=== PATIENT | female | born 1960 | race Caucasian/White ===

== ENCOUNTER 2017-03-07 06:24 | Day surgery (SDC) | payer OTHER ==
[~2017-03-07 06:24] MED LIST: Lactated Ringers 1,000 ML IV SCH
[2017-03-07] MEDS ORDERED: Propofol 200 MG/20 ML SDV ONE ×2 (07:44→07:57)
[2017-03-07] MEDS ORDERED: fentaNYL 100 MCG/2 ML SDV ONE (07:44)
[2017-03-07] MEDS ORDERED: Ondansetron 4 MG/2 ML SDV ONE (07:44)
[2017-03-07 08:26] VITALS: BP 116/68
--- NOTE | 2017-03-07 08:42 | OR ---
PREOPERATIVE DIAGNOSIS: Abdominal pain. Abnormal CAT scan of stomach. POSTOPERATIVE DIAGNOSIS: Minimal antritis, otherwise normal exam. PROCEDURE PROPOSED: Upper gastrointestinal panendoscopy with duodenal and antral biopsies. PROCEDURE DONE: Upper gastrointestinal panendoscopy with duodenal and antral biopsies. INDICATION: This is a 56-year-old female bothered with some lower abdominal pain. She was evaluated with a CT scan which revealed some unusual thickening of the stomach and she does have some mild dyspepsia symptoms and it is felt that she should have her stomach evaluated. She is also going to have a colonoscopy for screening purposes. TECHNIQUE: The patient was brought to the endoscopy suite, placed in the left lateral decubitus position. She was sedated per MOVABLE BULKHEAD INSTALLER with propofol. The flexible video gastroscope was then passed transorally and under visualization as well into the duodenum. The duodenum and duodenal bulb were unremarkable without inflammation or ulceration. A couple of biopsies were taken from the duodenum. The pylorus appeared unremarkable. The antrum did reveal some very minimal inflammation compatible with mild antritis. The body and fundus of the stomach otherwise looked normal. A couple of biopsies were taken from the antrum. The GE junction did not reveal any significant hiatal hernia. There was no signs of any active GERD or stenosis or Schatzki ring and the remainder of the esophagus was normal as the scope was then withdrawn. She tolerated the procedure well. IMPRESSION: Minimal antritis, otherwise normal exam. PLAN: The patient will be treated for a month with omeprazole 20 mg daily. She needs to avoid caffeine, ibuprofen, alcohol, nicotine and follow up with her PCP as needed. SECOND PROCEDURE: PREOPERATIVE DIAGNOSIS: Screening colonoscopy. POSTOPERATIVE DIAGNOSIS: Sigmoid diverticulosis, otherwise normal exam. PROCEDURE PROPOSED: Total flexible colonoscopy. PROCEDURE DONE: Total flexible colonoscopy. INDICATION: A 56-year-old female comes in for recommended screening colonoscopy. Her last examination was about 10 years ago. TECHNIQUE: She was in the left lateral decubitus position. She was sedated per MOVABLE BULKHEAD INSTALLER with propofol. The flexible video colonoscope was then passed transanally and under visualization advanced to the cecum, confirmed with visualization of the ileocecal valve. Upon withdrawal, examination revealed essentially normal ascending, transverse, and descending colon. The sigmoid colon revealed mild-to- moderate diverticulosis and the rectum was normal. There was no evidence of any polyps or colitis or other abnormalities and the scope was then withdrawn. She tolerated the procedure well. IMPRESSION: Sigmoid diverticulosis, otherwise normal exam. PLAN: I feel that she can continue to have screening colonoscopies every 10 years. SCM: 03/07/2017 08:19:03 MODL: 03/07/2017 08:36:09 /[id number]
--- NOTE | 2017-03-31 09:11 | LETTER ---
03/31/2017 Marium Ferro RE: MARIUM FERRO : 1960 Dear Marium: The biopsies taken from your duodenum revealed no abnormalities, which would rule out sprue or celiac disease or other intestinal bowel disease. The biopsies from your stomach revealed to have some mild inflammation, but there was no evidence of the H. pylori bacteria, which can cause ulcers. If you have any further questions, feel free to call. Respectfully,
== END 2017-03-07 09:25 | disposition home or self-care (01) ==
LOC: VM.SDS 06:24
PROVIDERS: ATTEND Surgery
DX: K29.50 Unspecified chronic gastritis without bleeding (principal); Z88.8 Allergy status to other drugs, medicaments and biological substances; F43.23 Adjustment disorder with mixed anxiety and depressed mood; E78.01 Familial hypercholesterolemia; E78.5 Hyperlipidemia, unspecified; J30.2 Other seasonal allergic rhinitis; E78.1 Pure hyperglyceridemia; Z79.899 Other long term (current) drug therapy
CPT/HCPCS: 43239; J2405; J2704; J3010; J7120

== ENCOUNTER 2018-11-22 21:42 | Emergency (ER) | payer OTHER ==
[2018-11-22 21:50] VITALS: BP 129/82; PULSE 97
--- NOTE | 2018-11-22 22:13 | EDM.PDOC ---
ED HPI GENERAL MEDICAL PROBLEM - General Chief Complaint: Abdominal Pain Stated Complaint: ADBOMININAL PAIN Time Seen by Provider: 11/22/18 21:45 Source of Information: Reports: Patient, Family History Limitations: Reports: No Limitations - History of Present Illness INITIAL COMMENTS - FREE TEXT/NARRATIVE: Patient presents to the ER today with complaint of lower pelvic pain that has been intermittent for the last day and a half states it is worse with urination or getting up and walking around. Pain at that time was 10 out of 10 but she remains still its a 1/10 symptoms progressively got worse this afternoon after watching football on home. She denies any dysuria but does have pain upon urination. She has no other complaints at this time She has had a total abdominal hysterectomy in the past cholecystectomy had a colonoscopy approximately 2-3 years ago with mild diverticulosis but has not had any diverticulitis. She has been eating normal and drinking normal today Duration: Day(s): Location: Reports: Abdomen, Pelvis. Denies: Back Quality: Reports: Pressure, Stabbing Improves with: Reports: Rest Worsens with: Reports: Movement Associated Symptoms: Reports: No Other Symptoms Treatments [employer]CHNICIAN: Reports: Other (see below) (She took 3 Advil prior to arrival about 20 minutes does not want anything for pain at this time) Lower Abdomen Pain Score (Numeric/FACES): 10 - Related Data Allergies Allergy/AdvReac Type Severity Reaction Status Date / Time orphenadrine [From Norflex] Allergy Other Verified 11/22/18 21:50 pravastatin [From Pravachol] Allergy Hives Verified 11/22/18 21:50 Home Meds: Home Meds DULoxetine HCl [Cymbalta] 60 mg PO DAILY 02/27/17 [History] Dextran 70/Hypromellose [Artificial Tears] 1 drop EYEBOTH Q4H PRN 02/27/17 [ History] Ipratropium [Atrovent 0.06% Nasal [place]] 2 spray NASBOTH TID 02/27/17 [History] Multivitamin with Minerals [Multiple Vitamin] 1 tab PO DAILY 02/27/17 [History] Sodium Chloride [Saline Nasal [place]] 1 spray PRIYANK BID PRN 02/27/17 [History] Vitamin B Complex [B Complex] 1 tab PO DAILY 02/27/17 [History] Ezetimibe [Zetia] 10 mg PO DAILY 03/07/17 [History] Past Medical History HEENT History: Reports: None Other HEENT History: seasonal allergies, myopia, presbyopia, posterior vitreous detachment-left Cardiovascular History: Reports: High Cholesterol Other Respiratory History: abnormal CT scan-lung Gastrointestinal History: Reports: None Genitourinary History: Reports: UTI, Recurrent Other Genitourinary History: female stress incontinence Other Musculoskeletal History: right arm pain, dense breasts, adhesive capsulitis both shoulders Neurological History: Reports: None Psychiatric History: Reports: Anxiety, Depression, Mood Swings Other Psychiatric History: adjustment disorder with mixed anxiety and depression Endocrine/Metabolic History: Reports: None Other Hematologic History: chemotherapy induced neutropenia Immunologic History: Reports: None Oncologic (Cancer) History: Reports: Breast Dermatologic History: Reports: None - Past Surgical History GI Surgical History: Reports: Cholecystectomy, Colonoscopy, EGD Female Surgical History: Reports: Hysterectomy Other Musculoskeletal Surgeries/Procedures:: back surgery. hip growth excision Oncologic Surgical History: Reports: Lumpectomy Social & Family History - Tobacco Use Smoking Status *Q: Former Smoker Used Tobacco, but Quit: Yes Month/Year Tobacco Last Used: ED ROS GENERAL - Review of Systems Review Of Systems: See Below Constitutional: Denies: Fever, Chills, Malaise, Weakness, Fatigue, Decreased Appetite HEENT: Reports: No Symptoms Respiratory: Reports: No Symptoms Cardiovascular: Reports: No Symptoms Endocrine: Reports: No Symptoms GI/Abdominal: Reports: Abdominal Pain. Denies: Anorexia, Black Stool, Bloody Stool, Constipation, Decreased Appetite, Distension, Flatus, Hematemesis, Nausea , Vomiting : Reports: Urgency. Denies: Dysuria, Flank Pain, Frequency, Incontinence, Urinary Retention Musculoskeletal: Reports: No Symptoms Skin: Reports: No Symptoms Neurological: Reports: No Symptoms Psychiatric: Reports: No Symptoms Hematologic/Lymphatic: Reports: No Symptoms Immunologic: Reports: No Symptoms ED EXAM, GI/ABD - Physical Exam Exam: See Below Exam Limited By: No Limitations General Appearance: Alert, WD/WN, No Apparent Distress Eyes: Bilateral: Normal Appearance Throat/Mouth: Normal Inspection, Normal Lips, Normal Teeth, Normal Gums, Normal Oropharynx, Normal Voice, No Airway Compromise Neck: Non-Tender, Full Range of Motion Respiratory/Chest: No Respiratory Distress, Lungs Clear, Normal Breath Sounds, No Accessory Muscle Use, Chest Non-Tender Cardiovascular: Normal Peripheral Pulses, Regular Rate, Rhythm, No Edema, No Gallop, No JVD GI/Abdominal Exam: Normal Bowel Sounds, Soft, No Organomegaly, No Distention, No Abnormal Bruit, Tender, Other (Patient has mild diffuse tenderness to palpation across the lower pelvic. . She has negative rebound negative Mclain's negative heel slap pelvic rock elicits mild discomfort with heel drop she has no CVA tenderness bilateral). No: Non-Tender, Guarding, Rigid, Rebound Back Exam: Full Range of Motion. No: CVA Tenderness (L), CVA Tenderness (R) Extremities: Normal Inspection, Normal Range of Motion, Non-Tender, No Pedal Edema, Normal Capillary Refill Neurological: Alert, Oriented, CN II-XII Intact, Normal Cognition, Normal Gait, No Motor/Sensory Deficits Psychiatric: Normal Affect, Normal Mood Skin Exam: Warm, Dry, Intact, Normal Color, No Rash Course - Vital Signs Text/Narrative:: UA revealed positive leukocytes secondary to mild tenderness to palpation across lower pelvic region CBC and BMP patient has normal vital signs and afebrile currently does not wish to have any pain medicines CBC within normal limits with no acute white count we'll treat for UTI Cipro 500 one by mouth twice a day 3 days Pyridium 100 mg one by mouth every 12 hours 3 days patient is to follow up with primary care provider in the a.m. or return to the emergency room if anything changes or gets worse Patient is okay with diagnosis treatment going home state she has an appointment Friday with a primary care provider already Last Recorded V/S: Last Vital Signs Temp 36.8 C 11/22/18 21:42 Pulse 97 11/22/18 21:42 Resp 18 11/22/18 21:42 BP 129/82 11/22/18 21:42 Pulse Ox 97 11/22/18 21:42 - Orders/Labs/Meds Orders: Active Orders 24 hr Category Date Time Status BASIC METABOLIC PANEL,BMP [CHEM] Stat Lab 11/22/18 22:07 Ordered Phenazopyridine [Urinary Pain Relief] Med 11/22/18 22:32 Ordered 95 mg PO TID PRN Medication Orders Phenazopyridine HCl (Urinary Pain Relief) 95 mg PO TID PRN PRN Reason: Pain Labs: Laboratory Tests 11/22/18 11/22/18 Range/Units 21:55 22:20 WBC 8.8 (4.0-10.0) x10^3/uL RBC 4.17 (4.00-5.50) x10^6/uL Hgb 12.6 (12.0-16.0) g/dL Hct 37.3 (33.0-47.0) % MCV 89.4 (78.0-93.0) fL MCH 30.2 (26.0-32.0) pg MCHC 33.8 (32.0-36.0) g/dL RDW Coeff of Haily 12.7 (10.0-15.0) % Plt Count 166 (130-400) x10^3/uL Neut % (Auto) 71.8 (50.0-80.0) % Lymph % (Auto) 18.1 L (25.0-50.0) % [place] % (Auto) 8.8 (2.0-11.0) % Eos % (Auto) 0.6 (0.0-4.0) % Baso % (Auto) 0.7 (0.2-1.2) % Urine Color Straw H (YELLOW) POC Urine Appearance Clear (CLEAR) POC Urine pH 6.0 (5.0-8.0) Ur Specific [place] 1.005 (1.005-1.030) POC Urine Protein Negative (NEGATIVE) POC Ur Glucose (UA) Negative (NEGATIVE) POC Urine Ketones Negative (NEGATIVE) POC Ur Occult Blood Negative (NEGATIVE) POC Urine Nitrite Negative (NEGATIVE) POC Urine Bilirubin Negative (NEGATIVE) POC Urine Urobilinogen 0.2 (0.2) POC U Leukocyte Esteras Large H (NEGATIVE) Meds: Medications Generic Name Dose Route Start Last Admin Trade Name Freq PRN Reason Stop Dose Admin Phenazopyridine HCl 95 mg 11/22/18 22:32 Urinary Pain Relief PO TID PRN Pain Discontinued Medications Generic Name Dose Route Start Last Admin Trade Name Freq PRN Reason Stop Dose Admin Ciprofloxacin 1 packet 11/22/18 22:31 Take Home: Ciprofloxacin 500 Mg, 2 Tab Pack PO 11/22/18 22:32 ONETIME ONE Departure - Departure Time of Disposition: 22:50 Disposition: Home, Self-Care 01 Condition: Good Clinical Impression: Pelvic pain in female, UTI (urinary tract infection) - Discharge Information *PRESCRIPTION DRUG MONITORING PROGRAM REVIEWED*: No *COPY OF PRESCRIPTION DRUG MONITORING REPORT IN PATIENT ANDERSON: No Referrals: Trinity Rios DO [Primary Care Provider] - Forms: ED Department Discharge - Problem List & Annotations (1) Pelvic pain in female SNOMED Code(s): 629088395 Code(s): R10.2 - PELVIC AND PERINEAL PAIN Status: Acute Current Visit: Yes (2) UTI (urinary tract infection) SNOMED Code(s): 82384728 Code(s): N39.0 - URINARY TRACT INFECTION, SITE NOT SPECIFIED Status: Acute Current Visit: Yes - My Orders Last 24 Hours: My Active Orders 11/22/18 22:07 BASIC METABOLIC PANEL,BMP [CHEM] Stat 11/22/18 22:32 Phenazopyridine [Urinary Pain Relief] 95 mg PO TID PRN - Assessment/Plan Last 24 Hours: My Active Orders 11/22/18 22:07 BASIC METABOLIC PANEL,BMP [CHEM] Stat 11/22/18 22:32 Phenazopyridine [Urinary Pain Relief] 95 mg PO TID PRN
[2018-11-22] MEDS ORDERED: Take Home: Ciprofloxacin 500 MG Tab, 2 Tab Pack PO ONE (22:31)
[2018-11-22] MEDS ORDERED: Phenazopyridine 95 MG Tab PO PRN (22:32)
[2018-11-22 22:38] LABS: CHLORIDE,CL 105 mmol/L (54-184); SODIUM,NA 140 mmol/L (69-191)
[2018-11-22 22:42] LABS: ANION GAP 15.7 mmol/L (10-20)
== END 2018-11-22 22:50 | disposition home or self-care (01) ==
LOC: VM.ED 21:42
DX: N39.0 Urinary tract infection, site not specified (principal); E78.00 Pure hypercholesterolemia, unspecified; F32.9 Major depressive disorder, single episode, unspecified; F41.9 Anxiety disorder, unspecified; Z87.891 Personal history of nicotine dependence; Z88.8 Allergy status to other drugs, medicaments and biological substances
CPT/HCPCS: 36415; 80048; 81002; 85025; 87086; 99284; A9270

== ENCOUNTER 2019-10-05 11:44 | Emergency (ER) | payer OTHER ==
[2019-10-05 11:58] VITALS: BP 145/73; PULSE 90
--- NOTE | 2019-10-05 12:35 | EDM.PDOC ---
ED HPI GENERAL MEDICAL PROBLEM - General Chief Complaint: Chest Pain Stated Complaint: LEFT ARM PAIN Time Seen by Provider: 10/05/19 11:57 Source of Information: Reports: Patient History Limitations: Reports: No Limitations - History of Present Illness INITIAL COMMENTS - FREE TEXT/NARRATIVE: Pt. presents to ER with complaints of L arm pain. Pt. states that she has been experiencing it for a week. She states that the discomfort starts in the lateral shoulder/deltoid region and radiates into remainder of arm, hand and into all fingers. Pt. denies any trauma to the extremity. Pt. has a history of bilateral frozen shoulder but states that the presentation now is different. Pt. denies any neck pain. No swelling/duskiness to the extremity. Pt. denies any fever or chills. No chest pain, shortness of breath, or palpitations. No nausea or vomiting. Denies any jaw, neck or back pain. Onset: Today Onset Date: 10/05/19 Location: Reports: Upper Extremity, Left Quality: Reports: Burning Severity: Moderate Left Arm Pain Score (Numeric/FACES): 8 - Related Data Allergies Allergy/AdvReac Type Severity Reaction Status Date / Time orphenadrine [From Norflex] Allergy Other Verified 10/05/19 12:01 pravastatin [From Pravachol] Allergy Hives Verified 10/05/19 12:01 Home Meds: Home Meds DULoxetine HCl [Cymbalta] 60 mg PO DAILY 02/27/17 [History] Dextran 70/Hypromellose [Artificial Tears] 1 drop EYEBOTH Q4H PRN 02/27/17 [History] Ipratropium [Atrovent 0.06% Nasal [place]] 2 spray NASBOTH TID 02/27/17 [History] Multivitamin with Minerals [Multiple Vitamin] 1 tab PO DAILY 02/27/17 [History] Sodium Chloride [Saline Nasal [place]] 1 spray PRIYANK BID PRN 02/27/17 [History] Ezetimibe [Zetia] 10 mg PO DAILY 03/07/17 [History] Past Medical History HEENT History: Reports: None Other HEENT History: seasonal allergies, myopia, presbyopia, posterior vitreous detachment-left Cardiovascular History: Reports: High Cholesterol Other Respiratory History: abnormal CT scan-lung Gastrointestinal History: Reports: None Genitourinary History: Reports: UTI, Recurrent Other Genitourinary History: female stress incontinence Other Musculoskeletal History: right arm pain, dense breasts, adhesive capsulitis both shoulders Neurological History: Reports: None Psychiatric History: Reports: Anxiety, Depression, Mood Swings Other Psychiatric History: adjustment disorder with mixed anxiety and depression Endocrine/Metabolic History: Reports: None Other Hematologic History: chemotherapy induced neutropenia Immunologic History: Reports: None Oncologic (Cancer) History: Reports: Breast Dermatologic History: Reports: None - Past Surgical History Head Surgeries/Procedures: Reports: None GI Surgical History: Reports: Cholecystectomy, Colonoscopy, EGD Female Surgical History: Reports: Hysterectomy Other Musculoskeletal Surgeries/Procedures:: back surgery. hip growth excision Oncologic Surgical History: Reports: Lumpectomy Social & Family History - Tobacco Use Smoking Status *Q: Never Smoker - Alcohol Use Days Per Week of Alcohol Use: 1 Number of Drinks Per Day: 1 Total Drinks Per Week: 1 - Recreational Drug Use Recreational Drug Use: No ED ROS GENERAL - Review of Systems Review Of Systems: See Below Constitutional: Reports: No Symptoms HEENT: Reports: No Symptoms Respiratory: Reports: No Symptoms Cardiovascular: Reports: No Symptoms Endocrine: Reports: No Symptoms GI/Abdominal: Reports: No Symptoms : Reports: No Symptoms Musculoskeletal: Reports: Arm Pain Skin: Reports: No Symptoms Neurological: Reports: No Symptoms Psychiatric: Reports: No Symptoms Hematologic/Lymphatic: Reports: No Symptoms Immunologic: Reports: No Symptoms ED EXAM, GENERAL - Physical Exam Exam: See Below Exam Limited By: No Limitations General Appearance: Alert, WD/WN, No Apparent Distress Head: Atraumatic, Normocephalic Neck: Normal Inspection, Supple, Non-Tender, Limited Range of Motion (ROM to the cervical spine is decreased) Extremities: Normal Inspection, Other. No: Mottled (decreased ROM of L shoulder. Unable to exacerbate pain with palpation/manipulation of the extremity. CMS intact. Extremity is not mottled or cyanotic. She has 5/5 strength in her upper and lower extremities. No pronator drift.), Pallor, Redness Neurological: Alert, Oriented, CN II-XII Intact, Normal Cognition, Normal Gait, Normal Reflexes, No Motor/Sensory Deficits Psychiatric: Normal Affect, Normal Mood Skin Exam: Warm, Dry, Intact, Normal Color, No Rash EKG INTERPRETATION Rhythm: NSR [place]: Normal P-Wave: Present QRS: Normal ST-T: Normal QT: Normal Course - Vital Signs Last Recorded V/S: Last Vital Signs Temp 36.9 C 10/05/19 11:57 Pulse 90 10/05/19 11:57 Resp 16 10/05/19 11:57 BP 145/73 H 10/05/19 11:57 Pulse Ox 99 10/05/19 11:57 - Orders/Labs/Meds Orders: Active Orders 24 hr Category Date Time Status EKG 12 Lead [EKG Documentation Completion] [RC] STAT Care 10/05/19 12:00 Active Labs: Laboratory Tests 10/05/19 10/05/19 10/05/19 Range/Units 12:11 12:11 12:11 WBC 4.9 (4.0-10.0) x10^3/uL RBC 4.30 (4.00-5.50) x10^6/uL Hgb 13.0 (12.0-16.0) g/dL Hct 38.1 (33.0-47.0) % MCV 88.6 (78.0-93.0) fL MCH 30.2 (26.0-32.0) pg MCHC 34.1 (32.0-36.0) g/dL RDW Coeff of Haily 12.9 (10.0-15.0) % Plt Count 175 (130-400) x10^3/uL Neut % (Auto) 54.1 (50.0-80.0) % Lymph % (Auto) 36.6 (25.0-50.0) % [place] % (Auto) 6.7 (2.0-11.0) % Eos % (Auto) 1.6 (0.0-4.0) % Baso % (Auto) 1.0 (0.2-1.2) % PT 9.9 (9.5-12.3) SEC INR 0.9 L (2.0-3.5) Sodium 138 (136-145) mmol/L Potassium 3.5 (3.5-5.1) mmol/L Chloride 104 (98-107) mmol/L Carbon Dioxide 27 (21-32) mmol/L Anion Gap 10.5 (10-20) mmol/L BUN 14 (7-18) mg/dL Creatinine 1.0 (0.55-1.02) mg/dL Est Cr Clr Drug Dosing 60.35 mL/min Estimated GFR (MDRD) 57 Glucose 114 H (74-106) mg/dL Calcium 8.2 L (8.5-10.1) mg/dL Corrected Calcium 8.52 (8.5-10.1) mg/dL Total Bilirubin 0.5 (0.2-1.0) mg/dL AST 19 (15-37) U/L ALT 20 (14-59) U/L Alkaline Phosphatase 79 (46-116) U/L Troponin I < 0.017 (<=0.056) ng/mL Total Protein 7.0 (6.4-8.2) g/dL Albumin 3.6 (3.4-5.0) g/dL Globulin 3.4 Albumin/Globulin Ratio 1.06 Departure - Departure Time of Disposition: 13:00 Disposition: Home, Self-Care 01 Clinical Impression: Cervical radiculopathy - Discharge Information Instructions: Cervical Radiculopathy, Prednisone tablets Referrals: Trinity Rios, [Primary Care Provider] - Forms: ED Department Discharge Additional Instructions: Prednisone 20mg 1 tab daily for 7 days Ibuprofen as needed for discomfort I will order physical therapy. They will contact you regarding an appointment. Sepsis Event Note (ED) - Evaluation Sepsis Screening Result: No Definite Risk - Focused Exam Vital Signs: Vital Signs Temp Pulse Resp BP Pulse Ox 10/05/19 11:57 36.9 C 90 16 145/73 H 99 - Problem List Review Problem List Initiated/Reviewed/Updated: Yes - My Orders Last 24 Hours: My Active Orders 10/05/19 12:00 EKG 12 Lead [EKG Documentation Completion] [RC] STAT - Assessment/Plan Last 24 Hours: My Active Orders 10/05/19 12:00 EKG 12 Lead [EKG Documentation Completion] [RC] STAT Plan: Cause of discomfort/tingling appears to be related to cervical radiculopathy or other peripheral/brachial nerve impingement. Her EKG and labs were all within normal limits. She was started on a course of prednisone 20mg for 7 days. She wa s scheduled for physical therapy. She states that she has an appointment with Dr. Rios on Friday.
[2019-10-05 12:40] LABS: ANION GAP 10.5 mmol/L (10-20); CHLORIDE,CL 104 mmol/L (98-107); SODIUM,NA 138 mmol/L (136-145)
== END 2019-10-05 12:56 | disposition home or self-care (01) ==
LOC: VM.ED 11:44
DX: M54.12 Radiculopathy, cervical region (principal); F41.9 Anxiety disorder, unspecified; F32.9 Major depressive disorder, single episode, unspecified; Z88.8 Allergy status to other drugs, medicaments and biological substances; Z79.899 Other long term (current) drug therapy
CPT/HCPCS: 36415; 80053; 84484; 85025; 85610; 93005; 93010; 99283-25; 99284

== ENCOUNTER 2021-10-20 13:28 | Emergency (ER) | payer OTHER ==
[2021-10-20] MEDS ORDERED: Lidocaine 1% 30 ML SDV INJECT ONE (14:08)
[2021-10-20 21:12] VITALS: BP 141/90; PULSE 79
== END 2021-10-20 14:42 | disposition home or self-care (01) ==
LOC: VM.ED 13:28
DX: S61.211A Laceration without foreign body of left index finger without damage to nail, initial encounter (principal); Z88.8 Allergy status to other drugs, medicaments and biological substances; Z79.899 Other long term (current) drug therapy; Z90.49 Acquired absence of other specified parts of digestive tract; Z87.891 Personal history of nicotine dependence; W26.0XXA Contact with knife, initial encounter
CPT/HCPCS: 12001; 99282

== ENCOUNTER 2024-09-27 11:46 | Inpatient (IN) | payer OTHER, MEDICARE ==
[2024-09-27 12:15] LABS: BASOPHILS ABSOLUTE AUTO 0.0 x10^3/uL (0.0-0.2); BASOPHILS PERCENT AUTO 0.4 % (0.2-1.2); EOSINOPHILS ABSOLUTE AUTO 0.0 x10^3/uL (0.0-0.5); EOSINOPHILS PERCENT AUTO 0.5 % (0.0-4.0); IMMATURE GRAN ABSOLUTE AUTO 0.04 x10^3/uL (0.00-0.07); IMMATURE GRAN PERCENT AUTO 0.50 % (0.00-0.43); LYMPHOCYTES ABSOLUTE AUTO 1.8 x10^3/uL (1.0-4.8); LYMPHOCYTES PERCENT AUTO 23.4 % (25.0-50.0); MONOCYTES ABSOLUTE AUTO 0.7 x10^3/uL (0.0-0.8); MONOCYTES PERCENT AUTO 9.0 % (2.0-11.0); NEUTROPHILS ABSOLUTE AUTO 5.1 x10^3/uL (1.8-7.7); NEUTROPHILS PERCENT AUTO 66.2 % (50.0-80.0); PLATELET COUNT,PLT 256 x10^3/uL (130-400); RED BLOOD CELL COUNT 4.84 x10^6/uL (4.00-5.50); WHITE BLOOD CELL COUNT,WBC 7.7 x10^3/uL (4.0-10.0)
[2024-09-27 12:44] LABS: A/G RATIO 0.98; ALANINE AMINOTRANSFERASE,ALT 21 U/L (14-59); ASPARTATE AMNIOTRANSFERASE,AST 24 U/L (15-37); BILIRUBIN TOTAL 0.8 mg/dL (0.2-1.0); BLOOD UREA NITROGEN,BUN 19 mg/dL (7-18); CARBON DIOXIDE,CO2 18 mmol/L (21-32); CHLORIDE,CL 93 mmol/L (98-107); CREATININE 0.9 mg/dL (0.55-1.02); GLUCOSE RANDOM 94 mg/dL (70-99); POTASSIUM,K 4.0 mmol/L (3.5-5.1); PROTEIN TOTAL,TP 7.9 g/dL (6.4-8.2)
[2024-09-27 12:46] LABS: ESTIMATED GFR 71 mL/min (>=60); SODIUM,NA 129 mmol/L (136-145)
[2024-09-27 12:56] LABS: APPEARANCE,URINE SLIGHTLY CLOUDY (CLEAR); GLUCOSE,URINE NEGATIVE (NEGATIVE); OCCULT BLOOD,URINE TRACE-INTACT (NEGATIVE)
[2024-09-27 13:12] LABS: SQUAMOUS EPITHELIAL CELLS,UR MODERATE /HPF (NOT SEEN)
[2024-09-27] MEDS ORDERED: Ondansetron 4 MG/2 ML SDV IV PRN (15:14)
[2024-09-27] MEDS ORDERED: Ondansetron 4 MG Tab.DIS PO PRN (15:14)
[2024-09-27] MEDS ORDERED: Sodium Chloride 0.9% 10 ML Syringe FLUSH PRN (15:14)
[2024-09-27] MEDS ORDERED: Hypromellose 0.3% Ophth Soln 15 ML Bottle EYEBOTH PRN (16:29)
[2024-09-27] MEDS ORDERED: Albuterol HFA 18 Gm Inhaler INH PRN (16:29)
[2024-09-27 19:15] LABS: CORONAVIRUS COVID-19 NAA NEGATIVE (NEGATIVE); INFLUENZA A NAA NEGATIVE (NEGATIVE); INFLUENZA B NAA NEGATIVE (NEGATIVE); RESPIRATORY SYNCYTIAL VIR NAA NEGATIVE (NEGATIVE)
[2024-09-28 06:48] LABS: BASOPHILS ABSOLUTE AUTO 0.0 x10^3/uL (0.0-0.2); BASOPHILS PERCENT AUTO 0.2 % (0.2-1.2); EOSINOPHILS ABSOLUTE AUTO 0.1 x10^3/uL (0.0-0.5); EOSINOPHILS PERCENT AUTO 1.1 % (0.0-4.0); IMMATURE GRAN ABSOLUTE AUTO 0.02 x10^3/uL (0.00-0.07); IMMATURE GRAN PERCENT AUTO 0.30 % (0.00-0.43); LYMPHOCYTES ABSOLUTE AUTO 1.3 x10^3/uL (1.0-4.8); LYMPHOCYTES PERCENT AUTO 20.5 % (25.0-50.0); MONOCYTES ABSOLUTE AUTO 0.6 x10^3/uL (0.0-0.8); MONOCYTES PERCENT AUTO 8.6 % (2.0-11.0); NEUTROPHILS ABSOLUTE AUTO 4.5 x10^3/uL (1.8-7.7); NEUTROPHILS PERCENT AUTO 69.3 % (50.0-80.0); PLATELET COUNT,PLT 223 x10^3/uL (130-400); RED BLOOD CELL COUNT 4.42 x10^6/uL (4.00-5.50); WHITE BLOOD CELL COUNT,WBC 6.5 x10^3/uL (4.0-10.0)
[2024-09-28 07:33] LABS: A/G RATIO 0.89; ALANINE AMINOTRANSFERASE,ALT 21.0 U/L (14-59); ASPARTATE AMNIOTRANSFERASE,AST 21.0 U/L (15-37); BILIRUBIN TOTAL 0.8 mg/dL (0.2-1.0); BLOOD UREA NITROGEN,BUN 11.0 mg/dL (7-18); CARBON DIOXIDE,CO2 14.0 mmol/L (21-32); CHLORIDE,CL 103.0 mmol/L (98-107); CREATININE 0.5 mg/dL (0.55-1.02); EST CRCL DRUG DOSING (CG) 113.16 mL/min; ESTIMATED GFR 104.0 mL/min (>=60); GLUCOSE RANDOM 79.0 mg/dL (70-99); POTASSIUM,K 3.5 mmol/L (3.5-5.1); PROTEIN TOTAL,TP 6.6 g/dL (6.4-8.2); SODIUM,NA 135.0 mmol/L (136-145)
[2024-09-28] MEDS: Cyanocobalamin (Vitamin B12) 1,000 MCG Tab PO SCH (08:09)
[2024-09-28] MEDS: Ketorolac 15 MG/ML SDV IVPUSH PRN (09:49)
[2024-09-29 06:35] LABS: BASOPHILS ABSOLUTE AUTO 0.0 x10^3/uL (0.0-0.2); BASOPHILS PERCENT AUTO 0.2 % (0.2-1.2); EOSINOPHILS ABSOLUTE AUTO 0.1 x10^3/uL (0.0-0.5); EOSINOPHILS PERCENT AUTO 2.0 % (0.0-4.0); IMMATURE GRAN ABSOLUTE AUTO 0.02 x10^3/uL (0.00-0.07); IMMATURE GRAN PERCENT AUTO 0.40 % (0.00-0.43); LYMPHOCYTES ABSOLUTE AUTO 1.2 x10^3/uL (1.0-4.8); LYMPHOCYTES PERCENT AUTO 25.8 % (25.0-50.0); MONOCYTES ABSOLUTE AUTO 0.4 x10^3/uL (0.0-0.8); MONOCYTES PERCENT AUTO 7.7 % (2.0-11.0); NEUTROPHILS ABSOLUTE AUTO 2.9 x10^3/uL (1.8-7.7); NEUTROPHILS PERCENT AUTO 63.9 % (50.0-80.0); PLATELET COUNT,PLT 205 x10^3/uL (130-400); RED BLOOD CELL COUNT 4.41 x10^6/uL (4.00-5.50); WHITE BLOOD CELL COUNT,WBC 4.5 x10^3/uL (4.0-10.0)
[2024-09-29 06:56] LABS: BLOOD UREA NITROGEN,BUN 10.0 mg/dL (7-18); CHLORIDE,CL 102.0 mmol/L (98-107); CREATININE 0.7 mg/dL (0.55-1.02); EST CRCL DRUG DOSING (CG) 80.83 mL/min; GLUCOSE RANDOM 84.0 mg/dL (70-99); POTASSIUM,K 3.5 mmol/L (3.5-5.1); SODIUM,NA 138.0 mmol/L (136-145)
[2024-09-29 07:06] LABS: CARBON DIOXIDE,CO2 21.0 mmol/L (21-32)
[2024-09-29 07:08] LABS: ESTIMATED GFR 96.0 mL/min (>=60)
[2024-09-29] MEDS: Vitamin B6-pyridOXINE 50 MG Tab PO SCH (09:09)
[2024-09-29] MEDS: Iopamidol 755 Mg/ML 100 ML Bottle IVPUSH ONE (10:25)
[2024-09-30 06:47] LABS: BLOOD UREA NITROGEN,BUN 11.0 mg/dL (7-18); CARBON DIOXIDE,CO2 21.0 mmol/L (21-32); CHLORIDE,CL 100.0 mmol/L (98-107); CREATININE 0.7 mg/dL (0.55-1.02); EST CRCL DRUG DOSING (CG) 80.83 mL/min; ESTIMATED GFR 96.0 mL/min (>=60); GLUCOSE RANDOM 81.0 mg/dL (70-99); POTASSIUM,K 3.6 mmol/L (3.5-5.1); SODIUM,NA 136.0 mmol/L (136-145)
[2024-09-30 09:29] VITALS: BP 117/73; PULSE 78
== END 2024-09-30 10:00 | disposition home or self-care (01) | DRG 866 ==
LOC: VM.ED 11:46 → VM.MS 14:33
PROVIDERS: ADMIT Nurse Practitioner Family; ATTEND Internal Medicine
DX: B34.9 Viral infection, unspecified (principal); E87.1 Hypo-osmolality and hyponatremia; E87.20 Acidosis, unspecified; F41.9 Anxiety disorder, unspecified; F32.A Depression, unspecified; E78.2 Mixed hyperlipidemia; K21.9 Gastro-esophageal reflux disease without esophagitis; G89.29 Other chronic pain; M79.10 Myalgia, unspecified site; E86.0 Dehydration; R91.8 Other nonspecific abnormal finding of lung field; K44.9 Diaphragmatic hernia without obstruction or gangrene; J32.9 Chronic sinusitis, unspecified; Z88.8 Allergy status to other drugs, medicaments and biological substances; Z85.3 Personal history of malignant neoplasm of breast; Z90.49 Acquired absence of other specified parts of digestive tract; Z90.710 Acquired absence of both cervix and uterus; Z79.899 Other long term (current) drug therapy
CPT/HCPCS: 36415; 70450; 71046; 71275; 80048; 80053; 81001; 83605; 83735; 85025; 85652; 86140; 87040; 87637; 96360; 97116-GP; 97161-GP; 99284; 99284-25; A9270-GY; J1650; J1885; J7030; J7512; Q9967